=== PATIENT | male | born 1950 | race Caucasian/White ===

== ENCOUNTER 2017-04-08 08:06 | Outpatient (CLI) | payer MEDICARE, BC, OTHER ==
--- NOTE | 2017-04-08 11:14 | CT ---
CT ABDOMEN AND PELVIS WITHOUT IV CONTRAST: HISTORY: Secondary carcinoid tumors of other sites. COMPARISON: 08/17/16. FINDINGS: Absence of IV contrast reduces the sensitivity of the exam, particularly for evaluation of solid orga ns. Oral contrast was administered. The lung bases are unremarkable. The 2 cm low-density lesion in the right lobe/dome of the liver ant eriorly is stable. Low-density lesions in the spleen also appear stable. The patient is post cholec ystectomy. Bilateral cortical renal cysts are again seen. No calculi are seen in the kidneys, urete rs, or the urinary bladder. No hydroureteral nephrosis identified on either side. There are vascula r calcifications without evidence of aneurysmal dilatation of the abdominal aorta. No free air or fr ee fluid is seen in the ad or pelvis. The small bowel loops are not abnormally dilated. There is si gmoid diverticulosis without evidence of diverticulitis. There are degenerative changes in the spine . Surgical clips in the small bowel are again seen. IMPRESSION: Stable exam since 08/17/16. POS: PK
== END 2017-04-08 08:07 | disposition home or self-care (01) ==
LOC: CT 08:06
PROVIDERS: ATTEND Internal Medicine Hematology & Oncology
DX: C7B.09 Secondary carcinoid tumors of other sites (principal)
CPT/HCPCS: 74176

== ENCOUNTER 2017-10-23 09:49 | Outpatient (CLI) | payer MEDICARE, BC, OTHER | END 2017-10-23 09:50 | disposition home or self-care (01) | LOC: BICCT 09:49 | PROVIDERS: ATTEND Internal Medicine Hematology & Oncology | DX: C7B.09 Secondary carcinoid tumors of other sites (principal) | CPT/HCPCS: 74176 ==

== ENCOUNTER 2018-04-16 09:59 | Outpatient (CLI) | payer MEDICARE, BC, OTHER ==
--- NOTE | 2018-04-16 13:43 | CT ---
CT ABDOMEN AND PELVIS NONCONTRAST: Date 04/16/18 HISTORY: Carcinoid tumors. Follow-up. COMPARISON: Multiple exams back to 09/05/15. FINDINGS: Lung bases are clear. Gallbladder is surgically absent. The lobular low density mass within the anterior dome of the liver is again demonstrated. It measures up to 2.0 cm length on today's exam. Stable compared to exams back to 09/05/15. Lack of IV contrast limits evaluation of soft tissues. Postoperative changes of the col on are again demonstrated. No enlarged lymph nodes or free fluid. Scattered diverticula without adjac ent inflammation. Calcification within the arterial structures. Lobular cysts arising from each kidne y are stable. IMPRESSION: 1. Stable CT appearance of the oval low density mass within the anterior dome of the liver. 2. Atherosclerosis. 3. Other chronic-type findings are stable. POS: PK
== END 2018-04-16 10:00 | disposition home or self-care (01) ==
LOC: BICCT 09:59
PROVIDERS: ATTEND Internal Medicine Hematology & Oncology
DX: C7B.09 Secondary carcinoid tumors of other sites (principal); I70.90 Unspecified atherosclerosis; R16.0 Hepatomegaly, not elsewhere classified; K57.90 Diverticulosis of intestine, part unspecified, without perforation or abscess without bleeding; N28.1 Cyst of kidney, acquired; Z90.49 Acquired absence of other specified parts of digestive tract
CPT/HCPCS: 74176

== ENCOUNTER 2018-10-09 10:33 | Outpatient (CLI) | payer MEDICARE, BC, OTHER ==
--- NOTE | 2018-10-09 12:46 | CT ---
CT ABDOMEN AND PELVIS WITHOUT IV CONTRAST: 10/09/18 HISTORY: Secondary carcinoid tumors of other sites. COMPARISON: 04/16/18 and 10/23/17. FINDINGS: Absence of IV contrast reduces the sensitivity of exam particularly for evaluation of the solid organ s. Oral contrast was administered. The lung bases are clear. The 2 cm low dense lesion in the anterior dome of the right lobe of the arturo er is stable. The patient is post cholecystectomy. Low dense lesions in the spleen are stable. Bilate ral renal cysts are again seen. No urinary tract calculi or obstruction is identified. The patient is post cholecystectomy. No free air or free fluid is noted in the abdomen or pelvis. There are vascular calcifications withou t evidence of aneurysmal dilatation of the abdominal aorta. There is no evidence of small bowel obstr uction. There is sigmoid diverticulosis without evidence of diverticulitis. A normal appearing append ix is seen. There are degenerative changes in the spine. IMPRESSION: Stable exam. POS: TPC
== END 2018-10-09 10:34 | disposition home or self-care (01) ==
LOC: BICCT 10:33
PROVIDERS: ATTEND Internal Medicine Hematology & Oncology
DX: C7B.09 Secondary carcinoid tumors of other sites (principal)
CPT/HCPCS: 74176

== ENCOUNTER 2019-04-10 08:20 | Outpatient (CLI) | payer MEDICARE, BC, OTHER ==
--- NOTE | 2019-04-10 11:58 | CT ---
CT ABDOMEN AND PELVIS WITHOUT CONTRAST: HISTORY: Secondary carcinoid tumors of other sites. The patient gives a history of the removal of 7 carcinoid s in 2014 and chemotherapy. COMPARISON: 10/09/2018. FINDINGS: Absence of IV contrast reduces the sensitivity of the exam, particularly for evaluation of solid orga ns. Oral contrast was administered. The lung bases are unremarkable. The 2 cm low-density lesion in the anterior dome of the right lobe of the liver is stable. Low-density lesions in the spleen are also stable. The patient is status po st cholecystectomy. Bilateral renal cysts are stable. No urinary tract calculi or obstruction is se en. No free air or free fluid is identified in the abdomen or pelvis. Vascular calcifications are seen w ithout evidence of aneurysmal dilatation of the abdominal aorta. There is no evidence of small bowel obstruction. There is small sigmoid diverticulosis without diverticulitis. The 2 cm right mesenter ic nodular density has been stable since 08/17/2016. There are degenerative changes in the spine. IMPRESSION: Stable exam. POS: PK
== END 2019-04-10 08:21 | disposition home or self-care (01) ==
LOC: BICCT 08:20
PROVIDERS: ATTEND Internal Medicine Hematology & Oncology
DX: C7B.09 Secondary carcinoid tumors of other sites (principal)
CPT/HCPCS: 74176

== ENCOUNTER 2019-10-21 09:07 | Outpatient (CLI) | payer MEDICARE, BC, OTHER ==
--- NOTE | 2019-10-21 09:28 | RAD ---
4 views left knee: 10/21/2019 COMPARISON: None available HISTORY: Chronic lateral pain FINDINGS: No fracture or dislocation. No radiopaque foreign body or subcutaneous gas. No knee joint e ffusion. There is mild medial compartment narrowing. There is enthesophyte formation at the insertion of the quadriceps tendon. IMPRESSION: No acute findings.
== END 2019-10-21 09:08 | disposition home or self-care (01) ==
LOC: BICRAD 09:07
PROVIDERS: ATTEND Internal Medicine
DX: M25.562 Pain in left knee (principal)
CPT/HCPCS: 36415; 80053; 80061; 83036; 85025

== ENCOUNTER 2020-02-15 12:20 | Outpatient (CLI) | payer MEDICARE, BC, OTHER ==
--- NOTE | 2020-02-15 14:01 | MRI ---
MR the lumbar spine without contrast: 02/15/2020 History: Lumbar spondylosis, back pain radiating down the left hip and leg, radiculopathy COMPARISON: None. TECHNIQUE: Multiplanar multisequence MR images were obtained of lumbar spine without IV contrast FINDINGS: On the basis of 5 lumbar type vertebral bodies, conus medullaris terminates at [id number] level. Sagittal STIR imaging demonstrates mild increased signal intensity along the inferior endplate of L3 vertebral body, likely associated with mild nonspecific edema. T12-L1:No central canal or neural foraminal stenosis. Mild left-sided anterior osteophyte formation. L1-2:No significant central canal or neural foraminal stenosis. Mild anterior osteophyte formation. L2-3:There is disc desiccation with minimal disc bulge and mild anterior osteophyte formation. Mild b ilateral facet hypertrophy. No significant central canal or neural foraminal stenosis. L3-4:Mild bilateral facet hypertrophy. Intervertebral disc height and signal intensity appears within normal limits with no significant central canal or neural foraminal stenosis. Lateral post foraminal left-sided annular tear. L4-5:Mild bilateral facet hypertrophy and hypertrophy of the ligamentum flavum. Disc space narrowing with disc desiccation and mild disc bulge. There is a post foraminal annular tear laterally on the left. There is no significant central canal or neural foraminal stenosis. L5-S1:No significant central canal or neural foraminal stenosis. Image retroperitoneal structures demonstrateno acute findings. Bilateral renal cysts are noted, incom pletely visualized on this exam. IMPRESSION: Degenerative changes within the lumbar spine as detailed above. Mild increased STIR signal involving the inferior endplate of L3 laterally on the right signifies nonspecific edema which could be degenerative or posttraumatic nature.
--- NOTE | 2020-02-15 14:44 | MRI ---
EXAM: MRI left hip PROVIDED CLINICAL HISTORY: Left hip pain for 6 months without trauma COMPARISON: None FINDINGS: There is marrow signal alteration involving the left hemisacrum immediately medial to the inferior as pects of the left sacroiliac joint. There is apparent cortical effacement involving the inferior margin of the left sacral ala in this region. There is patchy signal alteration present on fluid sens itive sequences involving the gluteal musculature, right greater than left. Regional marrow signal appears otherwise normal. The amount of fluid within the hip joints appears physiologic. The left hip flexor, abductor, adductor and hamstring tendons appear intact. The acetabular labrum and femoral-acetabular articular cartilage are suboptimally evaluated in the ab sence of joint distention, appearing grossly normal. The courses of the regional major neurovascular structures appear unremarkable. IMPRESSION: 1. Incompletely characterized marrow edema involving the left sacrum. Sacroiliitis, both infectious a nd inflammatory, could be considered. 2. Noncircumscribed signal alteration on fluid sensitive sequences involving the gluteal musculature, right greater than left. These could reflect sites of medication administration. Infectious or inflammatory myositis is not excluded. 3. Postcontrast imaging of the entire pelvis may be useful as indicated.
== END 2020-02-15 12:21 | disposition home or self-care (01) ==
LOC: BICMRI 12:20
PROVIDERS: ATTEND Orthopaedic Surgery
DX: M43.06 Spondylolysis, lumbar region (principal); M25.552 Pain in left hip; R60.0 Localized edema; M47.816 Spondylosis without myelopathy or radiculopathy, lumbar region; M46.1 Sacroiliitis, not elsewhere classified; R93.7 Abnormal findings on diagnostic imaging of other parts of musculoskeletal system
CPT/HCPCS: 72148

== ENCOUNTER 2020-04-01 09:13 | Outpatient (CLI) | payer MEDICARE, BC, OTHER ==
--- NOTE | 2020-04-01 15:06 | CT ---
CT ABDOMEN AND PELVIS WITHOUT CONTRAST: Date: 04/01/2020 HISTORY: Secondary carcinoid tumors of other sites. COMPARISON: 10/09/2019. FINDINGS: Absence of IV contrast reduces the sensitivity of exam, particularly for evaluation of solid organs. Oral contrast was administered. The lung bases are clear. The patient is post cholecystectomy. No free air or free fluid is seen in the abdomen or pelvis. The hypodense lesion in the anterior dome of the right lobe of the liver is stable. Numerous hypodens e lesions in the spleen are redemonstrated. Multiple bilateral renal cysts are again seen. Pancreas a nd adrenal glands are grossly unremarkable. No calculi seen in the kidneys, ureters, or the urinary b ladder. No hydroureteronephrosis is noted on either side. The small bowel loops are not abnormally dilated. The appendix is normal. There is colonic diverticul osis. The approximately 2.0 cm soft tissue nodular lesion in the central mesentery to the right of midline is essentially stable. No new enlarged lymph nodes are seen. There are vascular calcifications without evidence of aneurysmal dilatation of the abdominal aorta. T here are degenerative changes in the spine. IMPRESSION: Stable exam. POS: JULITA
== END 2020-04-01 09:14 | disposition home or self-care (01) ==
LOC: BICCT 09:13
PROVIDERS: ATTEND Internal Medicine Hematology & Oncology
DX: C7B.09 Secondary carcinoid tumors of other sites (principal)
CPT/HCPCS: 74176

== ENCOUNTER 2020-06-07 04:01 | Emergency (ER) | payer MEDICARE, BC, OTHER ==
[2020-06-07 05:27] LABS: #Eosinphils 0.3 thou/uL (0.0-0.7); #Lymphocytes 0.6 thou/uL (1.20-3.40); #Monocytes 0.7 thou/uL (0.11-0.59); %Basophils 0.1 % (0.0-1.0); %Eosinophils 2.3 % (0.0-10.0); %Lymphocytes 4.9 % (21.0-51.0); %Monocytes 5.9 % (0.0-10.0); %Neutrophils 86.8 % (42.0-75.0); Hemoglobin 16.9 g/dL (14.0-18.0); Mean Corpuscular HGB CONC 32.3 g/dL (32.0-36.0); Mean Corpuscular Hemoglobin 28.8 pg (27.0-31.0); Mean Corpuscular Volume 89.4 fL (78.0-98.0); Mean Platelet Volume 8.6 fL (7.4-10.4); Platelet Count 170 thou/uL (130-400); RBC Distribution Width 12.6 % (11.5-14.5); Red Blood Cell (RBC) Count 5.85 mill/uL (4.70-6.10); White Blood Cell (WBC) Count 12.6 thou/uL (4.8-10.8)
[2020-06-07 05:43] LABS: ALT (SGPT) 28 U/L (8-55); AST (SGOT) 27 U/L (5-34); Albumin 4.3 g/dL (3.4-4.8); Alkaline Phosphatase 73 U/L (40-110); Anion Gap 18 mmol/L (10-20); BUN (Urea Nitrogen) 18 mg/dL (8.4-25.7); Bilirubin, Total 0.9 mg/dL (0.2-1.2); Calc. Creatinine Clearance 0 mL/min (70-130); Calcium 9.5 mg/dL (7.8-10.44); Carbon Dioxide 19 mmol/L (23-31); Chloride 108 mmol/L (98-107); Globulin 3.7 g/dL (2.4-3.5); Glucose 132 mg/dL (80-115); Lipase 32 U/L (8-78); Sodium 141 mmol/L (136-145)
[2020-06-07] MEDS ORDERED: Ondansetron PF 4 MG/2 ML Vial ONE (07:06)
[2020-06-07 08:12] LABS: Bacteria/HPF 2+ HPF (None Seen); Bilirubin Negative (Negative); Blood, Urine Negative (Negative); Clarity Turbid (Clear); Glucose, Urine (Dipstick) Normal (Negative); Ketone, Urine Negative (Negative); Leukocyte Negative Leu/uL (Negative); Nitrite Negative (Negative); Protein, Urine (Dipstick) 100 mg/dL (Neg-Trace); Specific Gravity, Urine 1.034 (1.002-1.036); Squamous Epithelial 0-3 HPF (0-3); Urobilinogen Normal mg/dL (Less than 2); WBC/HPF 0-3 HPF (0-3); pH, Urine 5.5 (5.0-9.0)
== END 2020-06-07 09:45 | disposition home or self-care (01) ==
LOC: ERS 04:01
DX: R11.2 Nausea with vomiting, unspecified (principal); R14.0 Abdominal distension (gaseous); R10.11 Right upper quadrant pain; F17.220 Nicotine dependence, chewing tobacco, uncomplicated; E78.5 Hyperlipidemia, unspecified; I10 Essential (primary) hypertension; Z86.718 Personal history of other venous thrombosis and embolism; Z79.01 Long term (current) use of anticoagulants; Z79.899 Other long term (current) drug therapy
CPT/HCPCS: 36415; 74176; 80053; 81003; 81015; 83690; 85025; 96374; J2405

== ENCOUNTER 2020-09-30 08:44 | Outpatient (CLI) | payer MEDICARE, BC, OTHER | END 2020-09-30 08:45 | disposition home or self-care (01) | LOC: BICCT 08:44 | PROVIDERS: ATTEND Internal Medicine Hematology & Oncology | DX: C7B.09 Secondary carcinoid tumors of other sites (principal); N28.1 Cyst of kidney, acquired; D73.89 Other diseases of spleen | CPT/HCPCS: 74176 ==

== ENCOUNTER 2021-02-25 13:15 | Emergency (ER) | payer MEDICARE, BC, OTHER ==
[2021-02-25] MEDS ORDERED: Ketorolac Tromethamine 30 MG/ML VIAL ONE (15:17)
[2021-02-25] MEDS ORDERED: Boostrix 0.5 ML (Tdap) VIAL ONE (15:17)
== END 2021-02-25 15:48 | disposition home or self-care (01) ==
LOC: ERS 13:15
DX: S62.232A Other displaced fracture of base of first metacarpal bone, left hand, initial encounter for closed fracture (principal); I10 Essential (primary) hypertension; E78.5 Hyperlipidemia, unspecified; F17.220 Nicotine dependence, chewing tobacco, uncomplicated; Z86.718 Personal history of other venous thrombosis and embolism; Z79.01 Long term (current) use of anticoagulants; Z79.899 Other long term (current) drug therapy; Z23 Encounter for immunization; W23.1XXA Caught, crushed, jammed, or pinched between stationary objects, initial encounter
CPT/HCPCS: 29130; 90471; 90715; 96372; J1885

== ENCOUNTER 2021-03-03 13:53 | Outpatient (CLI) | payer MEDICARE, BC, OTHER ==
[2021-03-04 17:08] LABS: SARS-CoV-2 PCR by NAA Not Detected (NotDetected)
== END 2021-03-03 13:54 | disposition home or self-care (01) ==
LOC: LABBT 13:53
PROVIDERS: ATTEND Orthopaedic Surgery Hand Surgery
DX: Z01.818 Encounter for other preprocedural examination (principal); S62.201A Unspecified fracture of first metacarpal bone, right hand, initial encounter for closed fracture; Z20.822 Contact with and (suspected) exposure to COVID-19
CPT/HCPCS: 93005; U0003; U0005; 93010

== ENCOUNTER 2021-03-08 13:09 | Day surgery (SDC) | payer MEDICARE, BC, OTHER ==
[2021-03-06 11:37] VITALS: BMI 28.3
[2021-03-08 15:15] LABS: #Eosinphils 0.7 thou/uL (0.0-0.7); #Lymphocytes 1.2 thou/uL (1.20-3.40); #Monocytes 0.5 thou/uL (0.11-0.59); #Neutrophils 3.7 thou/uL (1.40-6.50); %Basophils 0.8 % (0.0-1.0); %Eosinophils 11.5 % (0.0-10.0); %Monocytes 8.5 % (0.0-10.0); %Neutrophils 60.2 % (42.0-75.0); Hemoglobin 14.4 g/dL (14.0-18.0); Mean Corpuscular HGB CONC 34.4 g/dL (32.0-36.0); Mean Corpuscular Hemoglobin 30.7 pg (27.0-31.0); Mean Corpuscular Volume 89.1 fL (78.0-98.0); Mean Platelet Volume 8.3 fL (7.4-10.4); Platelet Count 144 thou/uL (130-400); RBC Distribution Width 12.7 % (11.5-14.5); Red Blood Cell (RBC) Count 4.69 mill/uL (4.70-6.10); White Blood Cell (WBC) Count 6.1 thou/uL (4.8-10.8)
[2021-03-08] MEDS ORDERED: Bacitracin Zinc Ointment 30 gm TUBE ONE (16:49)
[2021-03-08] MEDS ORDERED: Neomycin-Polymyxin 1 ML AMP ONE (16:49)
[2021-03-08] MEDS ORDERED: HYDROmorphone 2 MG/ML VIAL ONE (16:50)
[2021-03-08] MEDS ORDERED: Midazolam HCl 2 mg/2 ml Vial ONE (16:50)
[2021-03-08] MEDS ORDERED: Fentanyl 100 MCG/2 ML VIAL ONE ×3 (16:50→20:11)
[2021-03-08] MEDS ORDERED: Ketamine 50 MG/ML (10ML VIAL) ONE (16:53)
[2021-03-08] MEDS ORDERED: ceFAZolin 2 GM/Dextrose 50 ML IVPB ONE (17:05)
[2021-03-08] MEDS ORDERED: Lidocaine 1% PF 5 ML VIAL ONE (17:13)
[2021-03-08] MEDS ORDERED: PROPOFOL 200 MG/20 ML VIAL ONE (17:13)
[2021-03-08] MEDS ORDERED: Dexamethasone 20 MG/5 ML VIAL ONE (17:13)
[2021-03-08] MEDS ORDERED: ePHEDrine 50 MG/ML VIAL ONE (17:13)
[2021-03-08] MEDS ORDERED: Bupivacaine PF 0.5% 30 ML VIAL ONE (17:33)
[2021-03-08] MEDS ORDERED: Ketorolac Tromethamine 30 MG/ML VIAL ONE (19:46)
[2021-03-08] MEDS ORDERED: HYDROcodone/Acetaminophen 5/325 mg Tablet ONE (20:34)
== END 2021-03-08 21:45 | disposition home or self-care (01) ==
LOC: SDC 13:09
PROVIDERS: ATTEND Orthopaedic Surgery Hand Surgery
PROC: 0PSQ04Z Reposition Left Metacarpal with Internal Fixation Device, Open Approach (ICD-10-PCS; principal; 2021-03-08)
DX: S62.232A Other displaced fracture of base of first metacarpal bone, left hand, initial encounter for closed fracture (principal); M81.0 Age-related osteoporosis without current pathological fracture; S44.92XA Injury of unspecified nerve at shoulder and upper arm level, left arm, initial encounter; I12.9 Hypertensive chronic kidney disease with stage 1 through stage 4 chronic kidney disease, or unspecified chronic kidney disease; N18.30 Chronic kidney disease, stage 3 unspecified; G47.30 Sleep apnea, unspecified; E78.5 Hyperlipidemia, unspecified; N40.0 Benign prostatic hyperplasia without lower urinary tract symptoms; R73.03 Prediabetes; N52.9 Male erectile dysfunction, unspecified; Z86.718 Personal history of other venous thrombosis and embolism; Z87.891 Personal history of nicotine dependence; Z79.01 Long term (current) use of anticoagulants; Z79.899 Other long term (current) drug therapy; Z88.8 Allergy status to other drugs, medicaments and biological substances; W22.8XXA Striking against or struck by other objects, initial encounter
CPT/HCPCS: 26665; 73120; 76000; 85025; C1713 ×4; J0690; J1100; J1170; J1885; J2250; J2704; J3010; J3490; S0020

== ENCOUNTER 2021-03-31 08:32 | Outpatient (CLI) | payer MEDICARE, BC, OTHER | END 2021-03-31 08:33 | disposition home or self-care (01) | LOC: CT 08:32 | PROVIDERS: ATTEND Internal Medicine Hematology & Oncology | DX: C7B.09 Secondary carcinoid tumors of other sites (principal); K76.9 Liver disease, unspecified; K57.30 Diverticulosis of large intestine without perforation or abscess without bleeding; N28.9 Disorder of kidney and ureter, unspecified; K63.89 Other specified diseases of intestine | CPT/HCPCS: 74176 ==

== ENCOUNTER 2021-09-18 09:27 | Outpatient (CLI) | payer MEDICARE, BC, OTHER | END 2021-09-18 09:28 | disposition home or self-care (01) | LOC: BICCT 09:27 | PROVIDERS: ATTEND Internal Medicine Hematology & Oncology | DX: C7B.09 Secondary carcinoid tumors of other sites (principal); N28.1 Cyst of kidney, acquired; R93.421 Abnormal radiologic findings on diagnostic imaging of right kidney; R93.5 Abnormal findings on diagnostic imaging of other abdominal regions, including retroperitoneum | CPT/HCPCS: 74176 ==

== ENCOUNTER 2022-03-19 09:47 | Outpatient (CLI) | payer MEDICARE, BC, OTHER | END 2022-03-19 09:48 | disposition home or self-care (01) | LOC: BICCT 09:47 | PROVIDERS: ATTEND Internal Medicine Hematology & Oncology | DX: C7B.09 Secondary carcinoid tumors of other sites (principal); K55.039 Acute (reversible) ischemia of large intestine, extent unspecified | CPT/HCPCS: 74176 ==

== ENCOUNTER 2022-09-10 09:15 | Outpatient (CLI) | payer MEDICARE, BC, OTHER | END 2022-09-10 09:16 | disposition home or self-care (01) | LOC: BICCT 09:15 | PROVIDERS: ATTEND Internal Medicine Hematology & Oncology | DX: C7B.09 Secondary carcinoid tumors of other sites (principal); K63.9 Disease of intestine, unspecified | CPT/HCPCS: 74176 ==

== ENCOUNTER 2023-01-15 09:28 | Outpatient (CLI) | payer MEDICARE, BC, OTHER | END 2023-01-15 09:29 | disposition home or self-care (01) | LOC: ULT 09:28 | PROVIDERS: ATTEND Internal Medicine | DX: R74.01 Elevation of levels of liver transaminase levels (principal); K76.0 Fatty (change of) liver, not elsewhere classified | CPT/HCPCS: 76705 ==

== ENCOUNTER 2023-03-11 10:07 | Outpatient (CLI) | payer MEDICARE, BC, OTHER | END 2023-03-11 10:08 | disposition home or self-care (01) | LOC: BICCT 10:07 → CT 10:08 | PROVIDERS: ATTEND Internal Medicine Hematology & Oncology | DX: C7B.09 Secondary carcinoid tumors of other sites (principal) | CPT/HCPCS: 74176 ==

== ENCOUNTER 2023-07-29 11:18 | Outpatient (CLI) | payer MEDICARE, BC, OTHER ==
[2023-07-29 13:09] LABS: #Basophils 0.05 10x3/uL (0.0-0.2); #Eosinphils 0.28 10x3/uL (0.0-0.5); #Monocytes 0.43 10x3/uL (0.0-1.1); #Neutrophils 3.27 10x3/uL (1.5-8.4); %Eosinophils 5.6 % (0.0-6.0); %Lymphocytes 19.4 % (18.0-47.0); %Monocytes 8.6 % (0.0-10.0); %Neutrophils 65.2 % (40.0-75.0); Hematocrit 45.8 % (38.8-50.0); Hemoglobin 15.9 g/dL (13.5-17.5); Mean Corpuscular HGB CONC 34.7 g/dL (32.0-36.0); Mean Corpuscular Hemoglobin 29.8 pg (27.0-33.0); Mean Corpuscular Volume 85.9 fL (81.2-95.1); Mean Platelet Volume 11.5 fL (7.4-10.4); Platelet Count 145 10x3/uL (150-450); RBC Distribution Width 13.2 % (11.5-14.5); Red Blood Cell (RBC) Count 5.33 10x6/uL (4.32-5.72)
[2023-07-29 13:13] LABS: Anion Gap 15 mmol/L (10-20); BUN (Urea Nitrogen) 12 mg/dL (8.4-25.7); Calc. Creatinine Clearance 0 mL/min (70-130); Calcium 9.1 mg/dL (7.8-10.44); Carbon Dioxide 22 mmol/L (23-31); Chloride 108 mmol/L (98-107); Estimated GFR 80; Glucose 87 mg/dL (83-110); Potassium 3.8 mmol/L (3.5-5.1); Sodium 141 mmol/L (136-145)
== END 2023-07-29 11:19 | disposition home or self-care (01) ==
LOC: LABBT 11:18
PROVIDERS: ATTEND Surgery
DX: Z01.812 Encounter for preprocedural laboratory examination (principal); S62.202A Unspecified fracture of first metacarpal bone, left hand, initial encounter for closed fracture
CPT/HCPCS: 80048; 85025

== ENCOUNTER 2024-02-06 08:52 | Outpatient (CLI) | payer MEDICARE, BC, OTHER | END 2024-02-06 08:53 | disposition home or self-care (01) | LOC: BICCT 08:52 | PROVIDERS: ATTEND Internal Medicine Hematology & Oncology | DX: C7B.09 Secondary carcinoid tumors of other sites (principal); R19.01 Right upper quadrant abdominal swelling, mass and lump; R16.0 Hepatomegaly, not elsewhere classified; I70.90 Unspecified atherosclerosis; I25.10 Atherosclerotic heart disease of native coronary artery without angina pectoris | CPT/HCPCS: 74176 ==

== ENCOUNTER 2024-03-20 10:57 | Outpatient (CLI) | payer MEDICARE, BC, OTHER | END 2024-03-20 10:58 | disposition home or self-care (01) | LOC: BICMAMMO 10:57 | PROVIDERS: ATTEND Internal Medicine Hematology & Oncology | DX: C7B.09 Secondary carcinoid tumors of other sites (principal); M85.851 Other specified disorders of bone density and structure, right thigh; M85.852 Other specified disorders of bone density and structure, left thigh; Z86.718 Personal history of other venous thrombosis and embolism | CPT/HCPCS: 77080 ==

== ENCOUNTER 2025-01-29 07:27 | Outpatient (CLI) | payer MEDICARE, BC | END 2025-01-29 07:28 | disposition home or self-care (01) | LOC: CT 07:27 | PROVIDERS: ATTEND Internal Medicine Hematology & Oncology | DX: C7B.09 Secondary carcinoid tumors of other sites (principal); Z86.718 Personal history of other venous thrombosis and embolism; M79.89 Other specified soft tissue disorders; I25.10 Atherosclerotic heart disease of native coronary artery without angina pectoris; R19.09 Other intra-abdominal and pelvic swelling, mass and lump | CPT/HCPCS: 74176 ==